=== PATIENT | female | born 1940 | race Two or more races ===

== ENCOUNTER 2020-10-30 12:27 | Inpatient (IN) | payer SELFPAY ==
[~2020-10-30] VITALS: Ht 154.9 cm; Wt 61.9 kg
--- NOTE | 2020-10-30 13:04 | NUR ---
PATIENT ARRIVES [facility], STATES SHE IS FEELING WEAK AND NUMBNESS RIGHT LEFT ARM LEG. WEAK. THIS HAPPENED TWO DAYS AGO AND STAYED HOME.
[2020-10-30] MEDS ORDERED: ALPR1TAB5 PO (13:17)
[2020-10-30] MEDS ORDERED: APIX2.5T PO (13:17)
[2020-10-30] MEDS ORDERED: SERT25TA3 PO (13:17)
[2020-10-30] MEDS ORDERED: SPIR1TAB PO (13:17)
[2020-10-30 13:55] LABS: BASOPHILS % (AUTO) 2 % (0-1); EOSINOPHILS % (AUTO) 2 % (1-7); LYMPHOCYTES % (AUTO) 31 % (22-44); MEAN CORPUSCULAR HEMOGLOBIN 29.7 pg (27.0-34.8); MEAN CORPUSCULAR HGB CONC 33.2 g/dL (32.4-35.8); MEAN PLATELET VOLUME 10.2 fL (7.4-10.4); MONOCYTES % (AUTO) 9 % (2-9); NEUTROPHILS % (AUTO) 57 % (42-75); PLATELET COUNT 122 x10^3/uL (130-400); RED BLOOD COUNT 5.03 x10^6/uL (3.82-5.3); RED CELL DISTRIBUTION WIDTH 14.1 % (9.6-15.2)
[2020-10-30 13:57] LABS: MD NO
[2020-10-30 14:04] LABS: INTERNATIONAL NORMALIZED RATIO 1.17 (0.93-1.1); PROTHROMBIN TIME 12.4 Seconds (9.6-11.5)
[2020-10-30 14:05] LABS: ALANINE AMINOTRANSFERASE 23 U/L (12-78); ALBUMIN 4.3 g/dL (3.4-5.0); ANION GAP 3 mmol/L (5-15); CALCIUM 9.7 mg/dL (8.5-10.1); CHLORIDE 106 mmol/L (98-107); CREATININE 0.75 mg/dL (0.55-1.02)
[2020-10-30 14:07] LABS: ALKALINE PHOSPHATASE 149 U/L (45-117); TOTAL PROTEIN 8.6 g/dL (6.4-8.2)
[2020-10-30] MEDS ORDERED: OMNIPAQUE 350 MG/ML, 75ML BOTTLE ONE (14:56)
--- NOTE | 2020-10-30 15:21 | NUR ---
REPORT FROM WILBER DAVE. AWAITING CT RESULTS.
[2020-10-30] MEDS ORDERED: ASPIRIN 81 MG TABLET CHEW PO ONE (16:00)
--- NOTE | 2020-10-30 16:18 | NUR ---
TELE NEURO CONSULT. PT W R SIDED WEAKNESS 4/5. GRANDSON FACILITATING EXAM. VSS.
[2020-10-30] MEDS ORDERED: TRAZODONE 50MG TABLET PO PRN (16:30)
[2020-10-30] MEDS ORDERED: ONDANSETRON 2MG/ML, 2ML IVPush PRN (16:30)
[2020-10-30] MEDS ORDERED: ACETAMINOPHEN 650 MG/20.3 ML UDC PO PRN (16:30)
[2020-10-30] MEDS ORDERED: ONDANSETRON 4 MG TABLET PO PRN (16:30)
[2020-10-30] MEDS ORDERED: POLYETHYLENE GLYCOL 17 GM PACKET PO PRN (16:30)
[2020-10-30] MEDS ORDERED: MELATONIN 5 MG TABLET PO PRN (16:30)
--- NOTE | 2020-10-30 17:00 | NUR ---
ATTEMPT X1 TO CALL REPORT.
--- NOTE | 2020-10-30 17:13 | NUR ---
REPORT TO SOFIYA DAVE.
[2020-10-30] MEDS ORDERED: ATEN100T PO (18:37)
[2020-10-30 19:32] VITALS: BP 136/76
[2020-10-30 20:50] LABS: MICROSCOPIC AUTO
[2020-10-30] MEDS ORDERED: ATORVASTATIN 40 MG TABLET PO SCH (21:00)
[2020-10-30] MEDS: APIXABAN 2.5 MG TABLET PO SCH (21:34)
[2020-10-31 01:42] VITALS: BP 130/69
[2020-10-31 05:40] LABS: CHOL/HDL RATIO 4.3; LDL/HDL RATIO 2.9 (0.5-3.0)
[2020-10-31 08:03] VITALS: BP 152/72
[2020-10-31] MEDS: SENNA/DOCUSATE TABLET PO SCH (08:32)
[2020-10-31] MEDS: APIXABAN 2.5 MG TABLET PO SCH ×2 (08:32→19:55)
[2020-10-31] MEDS: SERTRALINE 50MG TABLET PO SCH (08:33)
[2020-10-31] MEDS: ALPRAZOLAM 1 MG HOMEMEDPO SCH (08:46)
[2020-10-31] MEDS ORDERED: ASPIRIN 81 MG TABLET CHEW PO/NG SCH (09:00)
[2020-10-31 15:21] VITALS: BP 130/76
[2020-10-31 18:46] VITALS: BP 131/73
[2020-10-31] MEDS ORDERED: ATORVASTATIN 40 MG TABLET PO SCH (21:00)
[2020-11-01 00:53] VITALS: BP 152/81
[2020-11-01 06:38] VITALS: BP 128/72
[2020-11-01] MEDS: SENNA/DOCUSATE TABLET PO SCH (08:42)
[2020-11-01] MEDS: APIXABAN 2.5 MG TABLET PO SCH (08:42)
[2020-11-01] MEDS: SERTRALINE 50MG TABLET PO SCH (08:42)
[2020-11-01] MEDS: ALPRAZOLAM 1 MG HOMEMEDPO SCH (08:42)
[2020-11-01] MEDS ORDERED: ASPIRIN 81 MG TABLET CHEW PO/NG SCH (09:00)
[2020-11-01] MEDS ORDERED: ATOR-2 PO (10:56)
[2020-11-01] MEDS ORDERED: ASPI-515 PO/NG (10:56)
[2020-11-01 11:46] VITALS: BP 153/76
[2020-11-01] MEDS ORDERED: FOSF3PAC PO (15:00)
== END 2020-11-01 16:05 | disposition home or self-care (01) | DRG 65 ==
LOC: ED 13:45 → EDIP 15:51 → SUATTDRO 15:59 → 4WST 18:09
PROVIDERS: ADMIT Internal Medicine; ATTEND Internal Medicine
PROC: 0T9B70Z Drainage of Bladder with Drainage Device, Via Natural or Artificial Opening (ICD-10-PCS; principal; 2020-10-30)
DX: I63.81 Other cerebral infarction due to occlusion or stenosis of small artery (principal); N39.0 Urinary tract infection, site not specified; Z16.12 Extended spectrum beta lactamase (ESBL) resistance; C18.9 Malignant neoplasm of colon, unspecified; G81.91 Hemiplegia, unspecified affecting right dominant side; R47.01 Aphasia; E78.5 Hyperlipidemia, unspecified; G51.0 Bell's palsy; H91.90 Unspecified hearing loss, unspecified ear; I10 Essential (primary) hypertension; E88.89 Other specified metabolic disorders; B96.20 Unspecified Escherichia coli [E. coli] as the cause of diseases classified elsewhere; I27.20 Pulmonary hypertension, unspecified; I48.91 Unspecified atrial fibrillation; Z79.01 Long term (current) use of anticoagulants; Z79.899 Other long term (current) drug therapy; Z86.73 Personal history of transient ischemic attack (TIA), and cerebral infarction without residual deficits; Z98.41 Cataract extraction status, right eye
CPT/HCPCS: 36415; 70450; 70496; 70498; 70551; 80053; 80061; 80320; 81001; 83036; 85025; 85610; 85730; 87077; 87086; 87184; 87186; 93005; 93306; 99285; G0378; Q9967; G0480

== ENCOUNTER 2021-06-24 13:50 | Emergency (ER) | payer MEDICARE, MEDICAID ==
[~2021-06-24] VITALS: Ht 167.6 cm; Wt 63.5 kg
[~2021-06-24 13:50] MED LIST: ALPR1TAB9 PO; APIX2.5T PO; ASPI-963 PO/NG; ATEN100T PO; ATOR-2 PO; FOSF3PAC PO; SERT-331 PO; SPIR1TAB PO
--- NOTE | 2021-06-24 14:21 | NUR ---
FIRST CONTACT WITH PT, ASSUME CARE AT THIS TIME. MD AT BEDSIDE. PT IN BED WITH [employer]AMES [employer]ER, SPO2, BP Q 30 MIN, SIDE RAILS UP X 2, CALL LIGHT IN REACH. FAMILY AT BEDSIDE.
[2021-06-24 14:45] LABS: BASOPHILS % (AUTO) 1 % (0-1); EOSINOPHILS % (AUTO) 2 % (1-7); LYMPHOCYTES % (AUTO) 23 % (22-44); MEAN CORPUSCULAR HEMOGLOBIN 29.5 pg (27.0-34.8); MEAN CORPUSCULAR HGB CONC 32.6 g/dL (32.4-35.8); MEAN PLATELET VOLUME 10.5 fL (7.4-10.4); MONOCYTES % (AUTO) 9 % (2-9); NEUTROPHILS % (AUTO) 64 % (42-75); PLATELET COUNT 117 x10^3/uL (130-400); RED BLOOD COUNT 4.51 x10^6/uL (3.82-5.3); RED CELL DISTRIBUTION WIDTH 16.1 % (9.6-15.2)
[2021-06-24 14:52] LABS: ALANINE AMINOTRANSFERASE 30 U/L (12-78); ALBUMIN 3.9 g/dL (3.4-5.0); ANION GAP 7 mmol/L (5-15); CALCIUM 9.4 mg/dL (8.5-10.1); CHLORIDE 105 mmol/L (98-107); CREATININE 0.71 mg/dL (0.55-1.02)
[2021-06-24 14:57] LABS: ALKALINE PHOSPHATASE 240 U/L (45-117); BILIRUBIN,TOTAL 1.5 mg/dL (0.2-1.0); TOTAL PROTEIN 8.6 g/dL (6.4-8.2)
[2021-06-24] MEDS ORDERED: OMNIPAQUE 350 MG/ML, 75ML BOTTLE ONE (15:30)
[2021-06-24 18:21] VITALS: BP 124/74
== END 2021-06-24 18:22 | disposition home or self-care (01) ==
LOC: ED 18:16
DX: I31.3 Pericardial effusion (noninflammatory) (principal); R51.9 Headache, unspecified
CPT/HCPCS: 36415; 70450; 70498; 71045; 80053; 85025; 93005; 99285; Q9967